=== PATIENT | female | born 1960 | race Two or more races ===

== ENCOUNTER → 2018-02-11 | Outpatient (CLI) | payer OTHER | END | disposition home or self-care (01) | LOC: PPHC 09:51 | DX: Z00.00 Encounter for general adult medical examination without abnormal findings (principal) ==

== ENCOUNTER 2018-03-08 16:21 | Outpatient (CLI) | payer OTHER | END 2018-03-08 16:31 | disposition home or self-care (01) | LOC: RAD 16:21 | DX: M25.572 Pain in left ankle and joints of left foot (principal) ==

== ENCOUNTER 2018-03-15 13:37 | Outpatient (CLI) | payer OTHER | END 2018-03-15 13:45 | disposition home or self-care (01) | LOC: SONOGRAMA 13:37 → MAMO-SONO 14:15 | DX: M25.572 Pain in left ankle and joints of left foot (principal); S93.432A Sprain of tibiofibular ligament of left ankle, initial encounter ==